=== PATIENT | male | born 1990 | race Caucasian/White ===

== ENCOUNTER 2021-05-31 11:43 | Emergency (ER) | payer OTHER ==
[~2021-05-31] VITALS: Ht 165.1 cm; Wt 75.0 kg
[2021-05-31] MEDS ORDERED: KETOROLAC 30MG/ML VIAL IM ONE (12:15)
[2021-05-31 12:45] LABS: CLARITY URINE CLEAR (CLEAR); COLOR URINE YELLOW (YELLOW); KETONES URINE NEGATIVE (NEGATIVE); LEUKOCYTE ESTERASE URINE NEGATIVE (NEGATIVE); NITRITE URINE NEGATIVE (NEGATIVE); OCCULT BLOOD URINE NEGATIVE (NEGATIVE); PH URINE 6.5 (4.5-8.0); PROTEIN URINE NEGATIVE (NEGATIVE); SPECIFIC GRAVITY URINE 1.014 (1.005-1.030); UROBILINOGEN URINE 0.2 E.U./dL (0.2-1.0)
[2021-05-31 13:50] VITALS: BP 110/76
[2021-05-31] MEDS ORDERED: DOXY150T5 MT (13:55)
[2021-05-31] MEDS ORDERED: IBUP-2029 MT (13:56)
== END 2021-05-31 14:52 | disposition home or self-care (01) ==
LOC: ER 11:43
DX: R30.0 Dysuria (principal)
CPT/HCPCS: 76870; 81003; 93976; 96372; 99284; J1885

== ENCOUNTER 2024-08-09 06:20 | Emergency (ER) | payer MEDICAID, OTHER ==
[~2024-08-09] VITALS: Ht 170.2 cm; Wt 78.0 kg
[~2024-08-09 06:20] MED LIST: DOXY150T8 MT; IBUP-2029 MT
[2024-08-09 06:22] VITALS: O2SAT 100
[2024-08-09 06:59] VITALS: BP 112/70; PULSE 100; RESP 18; TEMP 36.83628; O2SAT 100
== END 2024-08-09 06:56 ==
LOC: ER 06:20
DX: K51.911 Ulcerative colitis, unspecified with rectal bleeding (principal); Z98.890 Other specified postprocedural states
CPT/HCPCS: 99283

== ENCOUNTER 2024-08-14 14:43 | Emergency (ER) | payer MEDICAID ==
[~2024-08-14] VITALS: Ht 162.6 cm; Wt 59.0 kg
[2024-08-14 14:47] VITALS: BP 110/67; PULSE 103; RESP 16; TEMP 98.2; O2SAT 98
[2024-08-14] MEDS ORDERED: SODIUM CHLORIDE 0.9% 1,000 ML IV ONE (15:00)
== END 2024-08-14 21:16 | disposition left against medical advice (07) ==
LOC: ER 14:47
DX: R19.7 Diarrhea, unspecified (principal); R11.2 Nausea with vomiting, unspecified; R10.84 Generalized abdominal pain
CPT/HCPCS: 99291